=== PATIENT | male | born 1980 | race Hispanic/Latino ===

== ENCOUNTER 2017-03-19 12:34 | Emergency (ER) | payer OTHER | END 2017-03-19 14:26 | disposition home or self-care (01) | LOC: M ED 12:34 | DX: Z04.1 Encounter for examination and observation following transport accident (principal); T14.8XXA Other injury of unspecified body region, initial encounter; V43.52XA Car driver injured in collision with other type car in traffic accident, initial encounter; Y92.410 Unspecified street and highway as the place of occurrence of the external cause; Z79.899 Other long term (current) drug therapy | CPT/HCPCS: 99284 ==

== ENCOUNTER → 2019-07-12 | Outpatient (CLI) | payer OTHER ==
[~2019-07-12] MED LIST: CELE50CA PO; TRAM50TA2 PO; ZOMI5TAB12 PO
--- NOTE | 2019-07-12 21:12 | REP ---
Clinical: History of sarcoidosis. Technique: Axial noncontrast images from the thoracic inlet to the upper abdomen with coronal and sagittal re-formations. Comparison: None. Findings: Bilateral lung arias are well-aerated and clear. No consolidation, significant nodule, or mass lesion. No significant interstitial changes are appreciated. No pleural effusion or pneumothorax. Tracheobronchial tree is patent. No axillary, mediastinal, or hilar adenopathy. Thoracic aorta, pulmonary vasculature and heart/pericardium appear normal. Surrounding musculoskeletal structures are intact. Limited upper abdomen demonstrates normal bilateral adrenal glands. Impression: 1. Normal noncontrast chest CT. 2. No acute mediastinal or pleuroparenchymal process. No adenopathy. Electronically Signed by Farhad Ramirez MD 07/12/2019 09:04 P
== END ==
LOC: M RAD 13:01
PROVIDERS: ATTEND Internal Medicine Pulmonary Disease
DX: D86.2 Sarcoidosis of lung with sarcoidosis of lymph nodes (principal)